=== PATIENT | female | born 1940 | race Caucasian/White ===

== ENCOUNTER 2020-03-30 13:26 | Outpatient (CLI) | payer MEDICARE, OTHER, SELFPAY ==
--- NOTE | 2020-03-30 | USCV_ITS ---
Saji Mary Age: 79 Gender: F : 1940 Exam Date: 03/30/2020 14:03 Ordering Phys: Sean Olvera MD Technologist: Soham Nguyen Exam Location: [facility] – [place] Indication: CCA STENOSIS BP: 132 / 65 HR: 73 Rhythm: Sinus Technical Quality: Fair MEASUREMENTS (Male / Female) Normal Values 2D ECHO LV Diastolic Diameter PLAX 3.1 cm 4.2 - 5.9 / 3.9 - 5.3 cm LV Systolic Diameter PLAX 2.6 cm IVS Diastolic Thickness 1.1 cm 0.6 - 1.0 / 0.6 - 0.9 cm IVS Systolic Thickness 1.7 cm LVPW Diastolic Thickness 0.9 cm 0.6 - 1.0 / 0.6 - 0.9 cm LVPW Systolic Thickness 1.1 cm LVOT Diameter 2.0 cm LV Ejection Fraction 2D Teich 37.5 % LV Ejection Fraction MOD 2C 77.1 % LV Ejection Fraction 2C AL 77.4 % LA Diameter 3.2 cm LA Width 4.0 cm LA Height 4.6 cm RA Width 3.7 cm RA Height 4.4 cm M-MODE LV Diastolic Diameter MM 4.1 cm 4.2 - 5.9 / 3.9 - 5.3 cm LV Systolic Diameter MM 2.1 cm LV Ejection Fraction MM Teich 80.1 % IVS Diastolic Thickness MM 1.1 cm 0.6 - 1.0 / 0.6 - 0.9 cm IVS Systolic Thickness MM 1.4 cm LVPW Diastolic Thickness MM 1.2 cm 0.6 - 1.0 / 0.6 - 0.9 cm LVPW Systolic Thickness MM 1.7 cm RV Diastolic Diameter MM 1.8 cm Aortic Annulus Diameter 2.9 cm LA Ao Ratio MM 1.2 MV E Point Septal Separation 1.0 cm DOPPLER AV Peak Velocity 141.0 cm/s LVOT Peak Velocity 112.0 cm/s AV Area Cont Eq vti 2.3 cm squared AV Area Cont Eq pk 2.6 cm squared MV Area PHT 5.0 cm squared Mitral E to A Ratio 0.5 MV E' Velocity 28.0 cm/s Mitral E to MV E' Ratio 7.6 Mitral E to LV E' Lateral Ratio 8.5 Mitral E to LV E' Septal Ratio 7.0 TR Peak Velocity 124.3 cm/s TR Peak Gradient 6.2 mmHg TV Peak E Velocity 92.0 cm/s Right Atrial Pressure 3.0 mmHg Pulmonary Artery Systolic Pressu 9.2 mmHg PV Peak Velocity 87.0 cm/s FINDINGS Left Ventricle Normal left ventricular size. LV systolic function is normal with EF of 55 to 60%. No wall motion abnormalities are seen. Grade 1 diastolic dysfunction is seen. Right Ventricle The right ventricle is normal in size and function. Right Atrium The right atrium is normal in size. Left Atrium The left atrium is normal in size. Mitral Valve Structurally normal mitral valve without significant stenosis or prolapse. There is no mitral regurgitation. Aortic Valve Structurally normal aortic valve without significant sclerosis or stenosis. There is mild aortic regurgitation. Tricuspid Valve Structurally normal tricuspid valve without significant stenosis or regurgitation. Insufficient TR jet to calculate RVSP. Pulmonic Valve Structurally normal pulmonic valve without significant stenosis. There is no pulmonic regurgitation. Pericardium Normal pericardium without effusion. Aorta Normal ascending aorta dimension. CONCLUSIONS LV systolic function is normal with EF of 55 to 60%. Grade 1 diastolic dysfunction is seen. Mild aortic regurgitation is seen. No significant valvular heart disease is present. Compared to prior echocardiogram from 11/05/2015, no significant changes are seen. Latrell Leiva MD Edited by: CV Machine Set Up Technician (Electronically Signed) Final Date: 09 April 2020 13:30 Amended: 10 April 2020 12:11 C
--- NOTE | 2020-03-30 | USCV_ITS ---
Mary Lennon Age: 79 Gender: F : 1940 Exam Date: 03/30/2020 14:14 Ordering Phys: Sean Olvera MD Technologist: Soham Nguyen Exam Location: [facility] Indication: CCA STENOSITS Risk Factors: None Previous Vascular Surgery: Right Brachial BP: / Left Brachial BP: / Right Left Velocity (cm/s) Spectral Plaque Velocity (cm/s) Spectral Plaque Syst/Diast Broadening Syst/Diast Broadening 84.90/ 14.30 Prox CCA 83.80 / 16.50 68.40/ 8.80 Mid CCA 75.00 / 14.30 90.40/ 12.10 Hetro Distal CCA 58.40 / 13.20 Hetro 98.10/ 24.30 Hetro Prox ICA 182.30/ 31.30 Hetro 119.10/23.20 Hetro Mid ICA 185.10/ 22.80 Hetro 101.40/18.70 Distal ICA 167.30/ 25.20 140.00 ECA 311.00 1.32 ICA/CCA 2.21 Antegrade Vertebral Antegrade 41.90/ 9.90 cm/s 74.90/ 15.80 cm/s Tri Subclavian Tri 148.8 139.3 0 0 FINDINGS Moderate heterogeneous plaques of the right bifurcation and proximal internal carotid artery. Moderate to heavy heterogeneous plaques at the left bifurcation and internal carotid artery Antegrade flow in the vertebral arteries bilaterally Normal Doppler flow velocities in the subclavian arteries bilaterally Intimal thickening and minimal plaques in the common carotid arteries bilaterally. CONCLUSIONS Moderate heterogeneous plaques of the right bifurcation and proximal internal carotid artery with the Doppler characteristics suggesting less than 50% stenosis. Moderate to heavy heterogeneous plaques at the left bifurcation and internal carotid artery with Doppler characteristics suggesting 50 to 69% stenosis. No significant stenosis in the vertebral and subclavian arteries bilaterally Compared to the study from 04/09/2017, there may not be a significant change Dr Fouzia De La Rosa MD [facility] Edited by: CV Customer Management Specialist (Electronically Signed) Final Date: 30 March 2020 18:16 Amended: 10 April 2020 12:10 C
--- NOTE | 2020-03-30 13:33 | USCV_ITS ---
Mary Lennon Age: 79 Gender: F : 1940 Exam Date: 03/30/2020 14:14 Ordering Phys: Sean Olvera MD Technologist: Soham Nguyen [place]am [place] [facility] [place] Indication: CCA STENOSITS Risk Factors: None Previous Vascular Surgery: Right Brachial BP: / Left Brachial BP: / Right Left Velocity (cm/s) Spectral Plaque Velocity (cm/s) Spectral Plaque Syst/Diast Broadening Syst/Diast Broadening 84.90/ 14.30 Prox CCA 83.80 / 16.50 68.40/ 8.80 Mid CCA 75.00 / 14.30 90.40/ 12.10 Hetro Distal CCA 58.40 / 13.20 Hetro 98.10/ 24.30 Hetro Prox ICA 182.30/ 31.30 Hetro 119.10/23.20 Hetro Mid ICA 185.10/ 22.80 Hetro 101.40/18.70 Distal ICA 167.30/ 25.20 140.00 ECA 311.00 1.32 ICA/CCA 2.21 Antegrade Vertebral Antegrade 41.90/ 9.90 cm/s 74.90/ 15.80 cm/s Tri Subclavian Tri 148.8 139.3 0 0 FINDINGS Moderate heterogeneous plaques of the right bifurcation and proximal internal carotid artery. Moderate to heavy heterogeneous plaques at the left bifurcation and internal carotid artery Antegrade flow in the vertebral arteries bilaterally Normal Doppler flow velocities in the subclavian arteries bilaterally Intimal thickening and minimal plaques in the common carotid arteries bilaterally. CONCLUSIONS Moderate heterogeneous plaques of the right bifurcation and proximal internal carotid artery with the Doppler characteristics suggesting less than 50% stenosis. Moderate to heavy heterogeneous plaques at the left bifurcation and internal carotid artery with Doppler characteristics suggesting 50 to 69% stenosis. No significant stenosis in the vertebral and subclavian arteries bilaterally Compared to the study from 04/09/2017, there may not be a significant change Dr Fouzia De La Rosa MD [facility] (Electronically Signed) Final Date: 30 March 2020 18:16 S
--- NOTE | 2020-03-30 13:33 | USCV_ITS ---
Saji Mary Age: 79 Gender: F : 1940 Exam Date: 03/30/2020 14:03 Ordering Phys: Sean Olvera MD Technologist: Soham Nguyen Exam Location: [facility] Indication: CCA STENOSIS BP: 132 / 65 HR: 73 Rhythm: Sinus Technical Quality: Fair MEASUREMENTS (Male / Female) Normal Values 2D ECHO LV Diastolic Diameter PLAX 3.1 cm 4.2 - 5.9 / 3.9 - 5.3 cm LV Systolic Diameter PLAX 2.6 cm IVS Diastolic Thickness 1.1 cm 0.6 - 1.0 / 0.6 - 0.9 cm IVS Systolic Thickness 1.7 cm LVPW Diastolic Thickness 0.9 cm 0.6 - 1.0 / 0.6 - 0.9 cm LVPW Systolic Thickness 1.1 cm LVOT Diameter 2.0 cm LV Ejection Fraction 2D Teich 37.5 % LV Ejection Fraction MOD 2C 77.1 % LV Ejection Fraction 2C AL 77.4 % LA Diameter 3.2 cm LA Width 4.0 cm LA Height 4.6 cm RA Width 3.7 cm RA Height 4.4 cm M-MODE LV Diastolic Diameter MM 4.1 cm 4.2 - 5.9 / 3.9 - 5.3 cm LV Systolic Diameter MM 2.1 cm LV Ejection Fraction MM Teich 80.1 % IVS Diastolic Thickness MM 1.1 cm 0.6 - 1.0 / 0.6 - 0.9 cm IVS Systolic Thickness MM 1.4 cm LVPW Diastolic Thickness MM 1.2 cm 0.6 - 1.0 / 0.6 - 0.9 cm LVPW Systolic Thickness MM 1.7 cm RV Diastolic Diameter MM 1.8 cm Aortic Annulus Diameter 2.9 cm LA Ao Ratio MM 1.2 MV E Point Septal Separation 1.0 cm DOPPLER AV Peak Velocity 141.0 cm/s LVOT Peak Velocity 112.0 cm/s AV Area Cont Eq vti 2.3 cm squared AV Area Cont Eq pk 2.6 cm squared MV Area PHT 5.0 cm squared Mitral E to A Ratio 0.5 MV E' Velocity 28.0 cm/s Mitral E to MV E' Ratio 7.6 Mitral E to LV E' Lateral Ratio 8.5 Mitral E to LV E' Septal Ratio 7.0 TR Peak Velocity 124.3 cm/s TR Peak Gradient 6.2 mmHg TV Peak E Velocity 92.0 cm/s Right Atrial Pressure 3.0 mmHg Pulmonary Artery Systolic Pressu 9.2 mmHg PV Peak Velocity 87.0 cm/s FINDINGS Left Ventricle Normal left ventricular size. LV systolic function is normal with EF of 55 to 60%. No wall motion abnormalities are seen. Grade 1 diastolic dysfunction is seen. Right Ventricle The right ventricle is normal in size and function. Right Atrium The right atrium is normal in size. Left Atrium The left atrium is normal in size. Mitral Valve Structurally normal mitral valve without significant stenosis or prolapse. There is no mitral regurgitation. Aortic Valve Structurally normal aortic valve without significant sclerosis or stenosis. There is mild aortic regurgitation. Tricuspid Valve Structurally normal tricuspid valve without significant stenosis or regurgitation. Insufficient TR jet to calculate RVSP. Pulmonic Valve Structurally normal pulmonic valve without significant stenosis. There is no pulmonic regurgitation. Pericardium Normal pericardium without effusion. Aorta Normal ascending aorta dimension. CONCLUSIONS LV systolic function is normal with EF of 55 to 60%. Grade 1 diastolic dysfunction is seen. Mild aortic regurgitation is seen. No significant valvular heart disease is present. Compared to prior echocardiogram from 11/05/2015, no significant changes are seen. Latrell Leiva MD (Electronically Signed) Final Date: 09 April 2020 13:30 S
== END 2020-03-30 13:27 | disposition home or self-care (01) ==
LOC: RAD 13:30
PROVIDERS: PCP Family Medicine; Visit Provider Family Medicine
DX: I65.23 Occlusion and stenosis of bilateral carotid arteries (principal)
CPT/HCPCS: 93306; 93880

== ENCOUNTER → 2021-02-15 12:06 | Outpatient (BNVA) | payer MEDICARE, OTHER, SELFPAY | PROVIDERS: PCP Family Medicine; Visit Provider Nurse Practitioner Family | DX: Z20.822 Contact with and (suspected) exposure to COVID-19 (principal) | CPT/HCPCS: 87635 ==

== ENCOUNTER → 2021-07-12 13:45 | Outpatient (BNVA) | payer MEDICARE, OTHER, SELFPAY | PROVIDERS: PCP Family Medicine; Referring Provider Family Medicine; Visit Provider Specialist | DX: M25.512 Pain in left shoulder (principal); M19.012 Primary osteoarthritis, left shoulder | CPT/HCPCS: 20610; 73030; 99203; 99204; J1100; J2795; J3301 ==

== ENCOUNTER → 2021-10-01 10:59 | Outpatient (BNVA) | payer MEDICARE, OTHER, SELFPAY | PROVIDERS: PCP Family Medicine; Visit Provider Family Medicine | DX: E03.9 Hypothyroidism, unspecified (principal); I10 Essential (primary) hypertension; E78.5 Hyperlipidemia, unspecified | CPT/HCPCS: 80053; 80061; 84443; 85025 ==

== ENCOUNTER → 2021-10-11 11:25 | Outpatient (BNVA) | payer MEDICARE, OTHER, SELFPAY | PROVIDERS: PCP Family Medicine; Visit Provider Specialist | DX: M19.012 Primary osteoarthritis, left shoulder (principal) | CPT/HCPCS: 20610; J1100; J2795; J3301 ==

== ENCOUNTER 2022-01-01 14:41 | Outpatient (CLI) | payer MEDICARE, OTHER, SELFPAY ==
--- NOTE | 2022-01-01 15:00 | CT_ITS ---
WS: [id number] CTA NECK TECHNIQUE: Contrast enhanced CTA of the neck with coronal and sagittal reformatted images and maximum intensity projection (MIP) images. NASCET criteria utilized. CLINICAL INFORMATION: CTA carotids for carotid artery stenosis COMPARISON: CTA 2017 DLP: 239.[address] scans at [facility] use at least one of these dose optimization techniques: automated e xposure control; mA and/or kV adjustment per patient size (includes targeted exams where dose is matc hed to clinical indication); or iterative reconstruction. FINDINGS: RIGHT: RIGHT common carotid artery is patent. Mild calcified atheromatous plaque RIGHT carotid bulb. No significant RIGHT ICA stenosis. ICA is patent to the skull base. Cavernous carotid calcification. LEFT: LEFT common carotid artery is patent. Moderate calcified atheromatous plaque LEFT carotid bulb extending into the ICA. LEFT ICA stenosis measures 60%. LEFT ICA is patent to the skull base. [place] us carotid calcification. LEFT dominant vertebral artery. Smaller but patent RIGHT vertebral artery. Straightening of the normal cervical lordosis. Mild spondylitic changes. ACDF C4-C6. LEFT dominant vertebral artery. Smaller but patent RIGHT vertebral artery. CT/CT angio neck [id number] IMPRESSION: 1. No significant RIGHT ICA stenosis. 2. LEFT ICA stenosis measures 60% appears stable compared to 2017. 3. Moderate calcified atheromatous plaque LEFT carotid bulb extending into the ICA. 4. LEFT dominant vertebral artery. Smaller but patent RIGHT vertebral artery.
[2022-01-01 15:44] LABS: Anion Gap 11.4 (5-19); Blood Urea Nitrogen 14 mg/dL (8-23); Calcium 9.9 mg/dL (8.5-10.5); Carbon Dioxide 30 mmol/L (22-29); Chloride 99 mmol/L (98-107); Glucose 106 mg/dL (65-115); Osmolality Calculated 283 mOsm/kg (285-295); Potassium 4.4 mmol/L (3.5-5.1); Sodium 136 mmol/L (136-145)
[2022-01-01] MEDS: iohexol 350 mg/mL 100 mL Btl IV (15:59)
== END 2022-01-01 14:42 | disposition home or self-care (01) ==
LOC: RAD 14:42
PROVIDERS: PCP Family Medicine; Visit Provider Otolaryngology Otology & Neurotology
DX: I65.22 Occlusion and stenosis of left carotid artery (principal)
CPT/HCPCS: 36415; 70498; 80048; Q9967

== ENCOUNTER → 2022-01-24 09:09 | Outpatient (BNVA) | payer MEDICARE, OTHER, SELFPAY | PROVIDERS: PCP Family Medicine; Visit Provider Specialist | DX: M19.012 Primary osteoarthritis, left shoulder (principal); Z71.89 Other specified counseling | CPT/HCPCS: 20610; J1100; J2795; J3301 ==

== ENCOUNTER → 2022-01-30 09:42 | Outpatient (BNVA) | payer MEDICARE, OTHER, SELFPAY | PROVIDERS: PCP Family Medicine; Visit Provider Family Medicine | DX: J06.9 Acute upper respiratory infection, unspecified (principal) | CPT/HCPCS: 87400 ==

== ENCOUNTER → 2022-07-26 11:08 | Outpatient (BNVA) | payer MEDICARE, OTHER, SELFPAY | PROVIDERS: PCP Family Medicine; Visit Provider Family Medicine | DX: E78.5 Hyperlipidemia, unspecified (principal); E03.9 Hypothyroidism, unspecified; I10 Essential (primary) hypertension; G89.29 Other chronic pain; M54.9 Dorsalgia, unspecified | CPT/HCPCS: 80053; 80061; 84443; 85025 ==

== ENCOUNTER → 2022-08-19 12:46 | Outpatient (BNVA) | payer MEDICARE, OTHER, SELFPAY | PROVIDERS: PCP Family Medicine; Visit Provider Dermatology | DX: L40.0 Psoriasis vulgaris (principal); H00.011 Hordeolum externum right upper eyelid; L81.4 Other melanin hyperpigmentation; Z12.83 Encounter for screening for malignant neoplasm of skin; L57.8 Other skin changes due to chronic exposure to nonionizing radiation | CPT/HCPCS: 99214 ==

== ENCOUNTER 2022-10-21 10:13 | Outpatient (CLI) | payer MEDICARE, OTHER, SELFPAY ==
--- NOTE | 2022-10-21 10:20 | FL_ITS ---
WS: [id number] Exam: FL upper GI w air* [id number] Date/Time of Exam: 10/21/2022 10:55 AM Reason For Exam: HIATAL HERNIA Swallowing function was normal. The esophagus is smooth in contour with normal motility. No hiatal he rnia. The stomach is freely distensible. No gastric mass or ulcer identified. The duodenal bulb is sm ooth in contour. Barium spills into the proximal small bowel without obstruction. IMPRESSION: 1. Unremarkable upper GI exam.
== END 2022-10-21 10:14 | disposition home or self-care (01) ==
PROVIDERS: PCP Family Medicine; Visit Provider Family Medicine
DX: K44.9 Diaphragmatic hernia without obstruction or gangrene (principal)
CPT/HCPCS: 74246

== ENCOUNTER → 2022-12-12 10:27 | Outpatient (BNVA) | payer MEDICARE, OTHER, SELFPAY | PROVIDERS: PCP Family Medicine; Visit Provider Specialist | DX: M19.012 Primary osteoarthritis, left shoulder | CPT/HCPCS: 20610; 73030; 99213; J1100; J2795; J3301 ==

== ENCOUNTER 2022-12-17 14:03 | Outpatient (CLI) | payer MEDICARE, OTHER, SELFPAY ==
--- NOTE | 2022-12-17 14:19 | XR_ITS ---
WS: [id number] Exam: XR elbow RT min 3V* [id number] Date/Time of Exam: 12/17/2022 2:25 PM Reason For Exam: elbow pain/ injury There is a nondisplaced fracture involving the lateral margin of the radial head. There is minimal se paration at the fracture line. No other fractures of the elbow are noted. There is joint effusion and soft tissue swelling about the elbow. IMPRESSION: 1. Nondisplaced radial head fracture with slight separation at the fracture line. 2. Joint effusion and soft tissue swelling. These findings were discussed by phone with Dr. Olvera's nurse at 2:45 p.m.. 12/17/2022.
--- NOTE | 2022-12-17 14:19 | XR_ITS ---
WS: [id number] Exam: XR shoulder RT min 2V* [id number] Date/Time of Exam: 12/17/2022 2:25 PM Reason For Exam: shoulder pain No acute fracture or dislocation. Degenerative changes at the AC joint and glenohumeral joint. Normal soft tissues. Neurostimulator electrodes are noted in the midthoracic region. IMPRESSION: 1. Degenerative changes of the RIGHT shoulder. No fracture or dislocation.
== END 2022-12-17 14:04 | disposition home or self-care (01) ==
PROVIDERS: PCP Family Medicine; Visit Provider Family Medicine
DX: S52.124A Nondisplaced fracture of head of right radius, initial encounter for closed fracture (principal); X58.XXXA Exposure to other specified factors, initial encounter; M19.011 Primary osteoarthritis, right shoulder; R30.0 Dysuria
CPT/HCPCS: 73030; 73080; 81000; 87086

== ENCOUNTER 2022-12-23 06:00 | Outpatient (CLI) | payer MEDICARE, OTHER, SELFPAY | END 2022-12-23 06:01 | disposition home or self-care (01) | LOC: SPT 12-24 13:33 | PROVIDERS: PCP Family Medicine; Visit Provider Specialist | DX: Z46.89 Encounter for fitting and adjustment of other specified devices (principal); S62.121D Displaced fracture of lunate [semilunar], right wrist, subsequent encounter for fracture with routine healing; X58.XXXD Exposure to other specified factors, subsequent encounter | CPT/HCPCS: 24650; 97760; 99204; L3761; L3908 ==

== ENCOUNTER → 2022-12-23 15:22 | Outpatient (BNVA) | payer MEDICARE, OTHER, SELFPAY | PROVIDERS: PCP Family Medicine; Referring Provider Family Medicine; Visit Provider Specialist | DX: S52.121A Displaced fracture of head of right radius, initial encounter for closed fracture (principal); S52.124A Nondisplaced fracture of head of right radius, initial encounter for closed fracture; X58.XXXA Exposure to other specified factors, initial encounter; Z46.89 Encounter for fitting and adjustment of other specified devices; S62.121D Displaced fracture of lunate [semilunar], right wrist, subsequent encounter for fracture with routine healing; X58.XXXD Exposure to other specified factors, subsequent encounter | CPT/HCPCS: 24650; 73080; 73110; 97760; 99204; L3761; L3908 ==

== ENCOUNTER → 2023-01-15 10:33 | Outpatient (BNVA) | payer MEDICARE, OTHER, SELFPAY | PROVIDERS: PCP Family Medicine; Visit Provider Specialist | DX: S60.211D Contusion of right wrist, subsequent encounter; S52.124D Nondisplaced fracture of head of right radius, subsequent encounter for closed fracture with routine healing; X58.XXXD Exposure to other specified factors, subsequent encounter | CPT/HCPCS: 73080; 73110; 99213 ==

== ENCOUNTER → 2023-02-10 10:44 | Outpatient (BNVA) | payer MEDICARE, OTHER, SELFPAY | PROVIDERS: PCP Family Medicine; Visit Provider Specialist | DX: S52.121D Displaced fracture of head of right radius, subsequent encounter for closed fracture with routine healing; X58.XXXD Exposure to other specified factors, subsequent encounter | CPT/HCPCS: 73080; 99024 ==

== ENCOUNTER → 2023-02-11 15:05 | Outpatient (BNVA) | payer MEDICARE, OTHER, SELFPAY | PROVIDERS: PCP Family Medicine; Visit Provider Family Medicine | DX: I10 Essential (primary) hypertension (principal); E78.5 Hyperlipidemia, unspecified; E03.9 Hypothyroidism, unspecified; M54.9 Dorsalgia, unspecified; G89.29 Other chronic pain | CPT/HCPCS: 80053; 85025 ==

== ENCOUNTER → 2023-02-25 14:43 | Outpatient (BNVA) | payer MEDICARE, OTHER, SELFPAY | PROVIDERS: PCP Family Medicine; Visit Provider Dermatology | DX: L40.0 Psoriasis vulgaris (principal); L81.4 Other melanin hyperpigmentation; L57.8 Other skin changes due to chronic exposure to nonionizing radiation | CPT/HCPCS: 99214 ==

== ENCOUNTER 2023-03-06 13:03 | Outpatient (RCR) | payer MEDICARE, OTHER, SELFPAY | END 2023-03-26 23:59 | disposition home or self-care (01) | LOC: SOT 13:03 | PROVIDERS: PCP Family Medicine; Visit Provider Specialist | DX: M25.521 Pain in right elbow (principal) | CPT/HCPCS: 97110; 97165; 97530 ==

== ENCOUNTER 2023-03-27 06:00 | Outpatient (RCR) | payer MEDICARE, OTHER, MEDICAID, SELFPAY | END 2023-04-24 23:59 | disposition home or self-care (01) | LOC: SOT 06:00 | PROVIDERS: PCP Family Medicine; Visit Provider Specialist | DX: M25.521 Pain in right elbow (principal) | CPT/HCPCS: 97110 ==

== ENCOUNTER → 2023-04-11 10:56 | Outpatient (BNVA) | payer MEDICARE, OTHER, MEDICAID, SELFPAY | PROVIDERS: PCP Family Medicine; Visit Provider Specialist | DX: M19.012 Primary osteoarthritis, left shoulder (principal) | CPT/HCPCS: 20610; J1100; J2795; J3301 ==

== ENCOUNTER → 2023-07-28 14:17 | Outpatient (BNVA) | payer MEDICARE, OTHER, MEDICAID, SELFPAY | PROVIDERS: PCP Family Medicine; Visit Provider Nurse Practitioner Family | DX: L21.8 Other seborrheic dermatitis (principal); S50.902A Unspecified superficial injury of left elbow, initial encounter; S50.912A Unspecified superficial injury of left forearm, initial encounter; X58.XXXA Exposure to other specified factors, initial encounter; L81.4 Other melanin hyperpigmentation; D22.5 Melanocytic nevi of trunk | CPT/HCPCS: 99214 ==

== ENCOUNTER 2023-08-08 09:18 | Outpatient (CLI) | payer MEDICARE, OTHER, MEDICAID, SELFPAY ==
[2023-08-08 10:15] LABS: Basophils # 0.1 10^3/uL (0.0-0.1); Basophils % 0.6 %; Eosinophils # 0.1 10^3/uL (0.0-0.8); Eosinophils % 1.4 %; Hematocrit 38.7 % (36-47); Lymphocytes # 1.4 10^3/uL (0.8-4.8); Lymphocytes % 16.4 %; Mean Corpuscular HGB Conc 32.6 g/dL (30-55); Mean Corpuscular Hemoglobin 30.4 pg (27-33); Mean Corpuscular Volume 93.3 fl (85-98); Mean Platelet Volume 10.7 fL (7.4-10.4); Monocytes # 0.8 10^3/uL (0.2-0.9); Monocytes % 9.7 %; Neutrophils # 5.95 10^3/uL (1.8-7.7); Neutrophils % 71.7 %; Nucleated Red Blood Cells % 0 %; Platelet Count 216 10^3/cmm (157-399); Red Blood Count 4.15 10^6/uL (3.85-5.65); Red Cell Distribution Width 12.6 % (12.1-15.1); White Blood Count 8.31 10^3/uL (3.29-11.43)
[2023-08-08 10:37] LABS: Anion Gap 14.4 (5-19); Blood Urea Nitrogen 15 mg/dL (8-23); Calcium 9.3 mg/dL (8.5-10.5); Carbon Dioxide 28 mmol/L (22-29); Chloride 104 mmol/L (98-107); Chol HDL Ratio 3.82 mg/dL (0.0-4.40); Cholesterol 191 mg/dL (0-200); Glucose 94 mg/dL (65-115); HDL Cholesterol 50 mg/dL (60-100); LDL Cholesterol Calculated 119 mg/dL (50-129); Osmolality Calculated 295 mOsm/kg (285-295); Potassium 4.4 mmol/L (3.5-5.1); Sodium 142 mmol/L (136-145); Triglycerides 109 mg/dL (0-150); VLDL Cholestrol Calculation 22 mg/dL (0-30)
[2023-08-08 10:50] LABS: HIV 1 & 2 Antibody Non-Reactive (Non-Reactiv); HIV 1 & 2 Antigen Non-Reactive (Non-Reactiv)
[2023-08-08 11:17] LABS: Hepatitis B Core AB, Total Non-Reactive (Nonreactive); Hepatitis B Surface Antigen Non-Reactive (Nonreactive); Hepatitis C Virus Antibody Non-Reactive (Nonreactive)
[2023-08-12 15:39] LABS: Quantiferon Mitogen 9.25 IU/mL; Quantiferon Nil 0.05 IU/mL; Quantiferon TB Gold NEGATIVE (NEGATIVE)
== END 2023-08-08 09:19 | disposition home or self-care (01) ==
LOC: LAB 09:19
PROVIDERS: PCP Family Medicine; Visit Provider Nurse Practitioner Family
DX: L40.0 Psoriasis vulgaris (principal)
CPT/HCPCS: 80048; 80061; 85025; 86480; 86704; 86803; 87340; 87806

== ENCOUNTER → 2023-10-28 13:47 | Outpatient (BNVA) | payer MEDICARE, OTHER, MEDICAID, SELFPAY | PROVIDERS: PCP Family Medicine; Visit Provider Nurse Practitioner Family | DX: L57.0 Actinic keratosis (principal); L82.0 Inflamed seborrheic keratosis; L40.0 Psoriasis vulgaris; L21.8 Other seborrheic dermatitis; L81.0 Postinflammatory hyperpigmentation; S50.902A Unspecified superficial injury of left elbow, initial encounter; S50.912A Unspecified superficial injury of left forearm, initial encounter; X58.XXXA Exposure to other specified factors, initial encounter | CPT/HCPCS: 17000; 17110; 99214 ==

== ENCOUNTER → 2023-11-10 12:50 | Outpatient (BNVA) | payer MEDICARE, OTHER, MEDICAID, SELFPAY | PROVIDERS: PCP Family Medicine; Visit Provider Family Medicine | DX: R69 Illness, unspecified (principal) | CPT/HCPCS: 87426 ==

== ENCOUNTER → 2024-03-12 11:18 | Outpatient (BNVA) | payer MEDICARE, OTHER, MEDICAID, SELFPAY | PROVIDERS: PCP Family Medicine; Visit Provider Nurse Practitioner Family | DX: L40.0 Psoriasis vulgaris (principal); L81.4 Other melanin hyperpigmentation; L82.1 Other seborrheic keratosis; L82.0 Inflamed seborrheic keratosis; Z78.9 Other specified health status; R20.8 Other disturbances of skin sensation; D48.5 Neoplasm of uncertain behavior of skin; L57.0 Actinic keratosis | CPT/HCPCS: 11102; 17000; 17110; 99213 ==

== ENCOUNTER → 2024-06-10 14:46 | Outpatient (BNVA) | payer MEDICARE, OTHER, MEDICAID, SELFPAY | PROVIDERS: PCP Family Medicine; Visit Provider Nurse Practitioner Family | DX: L40.0 Psoriasis vulgaris (principal); Z79.899 Other long term (current) drug therapy; Z08 Encounter for follow-up examination after completed treatment for malignant neoplasm; Z85.828 Personal history of other malignant neoplasm of skin; Z09 Encounter for follow-up examination after completed treatment for conditions other than malignant neoplasm; Z87.2 Personal history of diseases of the skin and subcutaneous tissue; L82.0 Inflamed seborrheic keratosis; L29.89 Other pruritus; L53.8 Other specified erythematous conditions; R20.8 Other disturbances of skin sensation | CPT/HCPCS: 17110; 99213 ==

== ENCOUNTER → 2024-08-13 11:17 | Outpatient (BNVA) | payer MEDICARE, OTHER, MEDICAID, SELFPAY | PROVIDERS: PCP Family Medicine; Visit Provider Family Medicine | DX: I10 Essential (primary) hypertension (principal); G25.81 Restless legs syndrome; E78.5 Hyperlipidemia, unspecified; E03.9 Hypothyroidism, unspecified; M54.9 Dorsalgia, unspecified; G89.29 Other chronic pain | CPT/HCPCS: 85025 ==

== ENCOUNTER → 2024-08-16 11:27 | Outpatient (BNVA) | payer MEDICARE, OTHER, MEDICAID, SELFPAY | PROVIDERS: PCP Family Medicine; Visit Provider Family Medicine | DX: I10 Essential (primary) hypertension (principal); G25.81 Restless legs syndrome; E78.5 Hyperlipidemia, unspecified; E03.9 Hypothyroidism, unspecified; M54.9 Dorsalgia, unspecified; G89.29 Other chronic pain | CPT/HCPCS: 80053; 80061; 82306; 82607; 82728; 83550; 83735; 84443; 85025 ==

== ENCOUNTER → 2024-12-14 13:43 | Outpatient (BNVA) | payer MEDICARE, OTHER, MEDICAID, SELFPAY | PROVIDERS: PCP Family Medicine; Visit Provider Nurse Practitioner Family | DX: L40.0 Psoriasis vulgaris (principal); Z79.899 Other long term (current) drug therapy; Z08 Encounter for follow-up examination after completed treatment for malignant neoplasm; Z85.828 Personal history of other malignant neoplasm of skin; D48.5 Neoplasm of uncertain behavior of skin | CPT/HCPCS: 11102; 99213 ==